=== PATIENT | female | born 1950 | race Caucasian/White ===

== ENCOUNTER 2018-05-25 21:53 | Inpatient (IN) ==
--- NOTE | 2018-05-25 23:02 | P.HPIM ---
History of Present Illness Service: [facility] Primary Care Physician: UNKNOWN Chief Complaint: Right knee pain History of Present Illness: 68-year-old female htn,GERD, and arthritis was a transfer from [facility] for orthopedic evaluation, status post fall. Patient was complaining of right knee pain she states when she was using the commode earlier she stood up and felt her knee give out and she fell. She denies any trauma of hitting her head , LOC or dizziness. X-rays completed at [facility] and reviewed, femur x- ray shows a closed acute spiral distal femoral metadiaphyseal fracture with 1.8 cm lateral displacement. She also complains of a right inner ankle chronic wound that she has had she states she does her own wound care dressings every other day but states over the last month she has seen it becoming worse, she states she has some yellow drainage from time to time, no foul smell or fevers. She denies any recent chest pain or shortness of breath. Inpatient Certification: I certify that the inpatient services were ordered in accordance with Medicare regulations governing the order. This includes certification that hospital inpatient services are reasonable and necessary and in the case of services not specified as inpatient-only under 42 CFR 419.22(n), that they are appropriately provided as inpatient services in accordance to with the 2-midnight benchmark under 43 CFR 412.3(e) Review of Systems All other systems reviewed negative except as stated in [facility] - Medical History Medical History: Medical History (Last Reviewed 05/26/18 @ 02:41 by BERONICA Payton) GERD (gastroesophageal reflux disease) (Acute) HTN (hypertension) (Acute) Arthritis C. difficile diarrhea - Surgical History Surgical History: Surgical History (Last Reviewed 05/26/18 @ 02:42 by BERONICA Payton) History of hip replacement - Family History Family History: Family History (Last Updated 05/26/18 @ 02:42 by BERONICA Payton) Mother AAA (abdominal aortic aneurysm) - Social History I have reviewed the patient's Social History: Yes - Tobacco History Second Hand Smoke Exposure: No Tobacco Use In Past 30 Days: No Smoking Status: Never smoker Medications and Allergies Allergies Allergy/AdvReac Type Severity Reaction Status Date / Time oxaprozin [From Daypro] Allergy Redness of Verified 05/25/18 23:02 Skin Home Medications Medication Instructions Recorded Confirmed Type aspirin 650 mg PO Q4-6H PRN 05/25/18 05/25/18 History metoprolol tartrate 25 mg PO DAILY 05/25/18 05/25/18 History omeprazole 20 mg PO DAILY 05/25/18 05/25/18 History Exam Narrative: GENERAL: This is a well-nourished, well-developed patient, in no apparent distress. SKIN: right inner ankle ulcer, minimal drainage EYES: Pupils equal round and reactive, no scleral edema or drainage CARDIOVASCULAR: Regular rate and rhythm without murmurs, gallops, or rubs. RESPIRATORY: Clear to auscultation. Breath sounds equal bilaterally. No wheezes , rales, or rhonchi. GASTROINTESTINAL: Abdomen soft, non-tender, nondistended. Normal active bowel sounds MUSCULOSKELETAL: Extremities without clubbing, cyanosis, or edema. NEURO: Alert & Oriented x4 to person, place, time, situation. Moves all ext x4 Caprini VTE Risk Assessment Caprini VTE Risk Assessment: No/Low Risk (score <= 1) Caprini Risk Assessment Model: Point Value = 1 Point Value = 2 Point Value = 3 Point Value = 5 Age 41-60 Minor surgery BMI > 25 kg/m2 Swollen legs Varicose veins or History of unexplained or recurrent spontaneous Oral contraceptives or hormone replacement Sepsis (< 1 month) Serious lung disease, including pneumonia (< 1 month) Abnormal pulmonary function Acute myocardial infarction Congestive heart failure (< 1 month) History of inflammatory bowel disease Medical patient at bed rest Age 61-74 Arthroscopic surgery Major open surgery (> 45 min) Laparoscopic surgery (> 45 min) Malignancy Confined to bed (> 72 hours) Immobilizing plaster cast Central venous access Age >= 75 History of VTE Family history of VTE Factor V Leiden Prothrombin [id number] Lupus anticoagulant Anticardiolipin antibodies Elevated serum homocysteine Heparin-induced thrombocytopenia Other congenital or acquired thrombophilia Stroke (< 1 month) Elective arthroplasty Hip, pelvis, or leg fracture Acute spinal cord injury (< 1 month) Prophylaxis Regimen: Total Risk Factor Score Risk Level Prophylaxis Regimen 0-1 Low Early ambulation 2 Moderate Order ONE of the following: *Sequential Compression Device (SCD) *Heparin 5000 units SQ BID 3-4 Higher Order ONE of the following medications: *Heparin 5000 units SQ TID *Enoxaparin/Lovenox 40 mg SQ daily (WT < 150 kg, CrCl > 30 mL/min) *Enoxaparin/Lovenox 30 mg SQ daily (WT < 150 kg, CrCl > 10-29 mL/min) *Enoxaparin/Lovenox 30 mg SQ BID (WT < 150 kg, CrCl > 30 mL/min) AND/OR *Sequential Compression Device (SCD) 5 or more Highest Order ONE of the following medications: *Heparin 5000 units SQ TID (Preferred with Epidurals) *Enoxaparin/Lovenox 40 mg SQ daily (WT < 150 kg, CrCl > 30 mL/min) *Enoxaparin/Lovenox 30 mg SQ daily (WT < 150 kg, CrCl > 10-29 mL/min) *Enoxaparin/Lovenox 30 mg SQ BID (WT < 150 kg, CrCl > 30 mL/min) AND *Sequential Compression Device (SCD) Assessment and Plan - Plan 68-year-old female htn,GERD, and arthritis was a transfer from [facility] for orthopedic evaluation, status post fall. Right femur fracture Femur x-ray shows a closed acute spiral distal femoral metadiaphyseal fracture with 1.8 cm lateral displacement. -N.p.o., IVF -Consult orthopedics for evaluation -Pain management with IV morphine -PT consult post surgery Chronic non healing wound, right inner ankle -Consult wound care for recommendations Hypertension, chronic -Resume home metoprolol, monitor vitals GERD, chronic -Resume home medications, with no longer n.p.o. DVT prophylaxis: SCDs Discussed Condition With: patient and RN
[2018-05-25] MEDS ORDERED: Acetaminophen 325 MG Tablet PO PRN (23:07)
[2018-05-25] MEDS ORDERED: Sodium Chloride 0.9% 2 ML Flush PRN IV.FLUSH (23:30)
[2018-05-26] MEDS: Sod Chloride 0.9% Inj 1,000 ML IV.CONT SCH ×2 (00:53→13:05)
[2018-05-26] MEDS: Morphine Sulfate Inj 2 MG/ML Vial IV.PUSH PRN ×2 (04:38→19:34)
[2018-05-26 08:05] LABS: Baso % (Auto) 0.3 % (0.0-2.0); Eos % (Auto) 0.3 % (0.0-4.0); Hemoglobin 8.6 gm/dL (11.6-15.3); Lymph # (Auto) 1.1 th/mm3 (1.0-4.8); Lymph % (Auto) 7.6 % (9.0-44.0); Mean Corpuscular HGB Conc 31.6 % (32.0-36.0); Mean Corpuscular Hemoglobin 22.8 pg (27.0-34.0); Mean Corpuscular Volume 72.1 fL (80.0-100.0); Mean Platelet Volume 6.9 fL (7.0-11.0); Mono % (Auto) 7.2 % (0.0-8.0); Neut # (Auto) 12.1 th/mm3 (1.8-7.7); Neut % (Auto) 84.6 % (16.0-70.0); Platelet Count 397 th/mm3 (150-450); Red Blood Count 3.75 mil/mm3 (4.00-5.30); Red Cell Distribution Width 16.7 % (11.6-17.2); White Blood Count 14.3 th/mm3 (4.0-11.0)
[2018-05-26] MEDS: Metoprolol Tartrate 25 MG Tablet PO SCH (08:11)
[2018-05-26 08:25] LABS: Calcium 8.5 mg/dL (8.5-10.1); Carbon Dioxide 26.8 meq/L (21.0-32.0); Potassium 4.6 meq/L (3.5-5.1)
[2018-05-26] MEDS ORDERED: TRANEXAMIC ACID IV.SIG SCH (09:00)
[2018-05-26] MEDS ORDERED: SODIUM CHLOR 0.9% IV.SIG SCH (09:00)
[2018-05-26] MEDS ORDERED: Neostigmine Inj 5 MG/5 ML Syringe IV.PUSH ONE (09:19)
[2018-05-26] MEDS ORDERED: Glycopyrrolate Inj 1 MG/5 ML Syringe IV.PUSH ONE (09:19)
[2018-05-26] MEDS ORDERED: Lidocaine PF 1% Inj 5 ML Syringe OTHER ONE (09:19)
--- NOTE | 2018-05-26 10:55 | P.PNWCN ---
Wound Care Nurse Consult Description: Consult for Wound Management of right inner ankle per BERONICA Bowling Additional information: Patient not seen in [facility] for right inner ankle wound. Patient off unit and taken to OR for surgery. Will attempt to see patient post surgery.
[2018-05-26] MEDS ORDERED: Tobramycin Sulfate 1,200 MG Vial (for ortho/sterile core) OTHER ONE (10:59)
[2018-05-26] MEDS ORDERED: Morphine Inj 4 MG/ML Vial IV.PUSH PRN (11:04)
[2018-05-26] MEDS ORDERED: Post-op Orders (for Pharmacy) OTHER STA (11:04)
--- NOTE | 2018-05-26 11:11 | P.OP ---
- Preoperative Diagnosis (1) Closed supracondylar fracture of right femur Date of procedure: 05/26/18 Procedure: Open reduction internal fixation right distal femur supracondylar fracture Anesthesia: GETA Surgeon: Derick Day MD Supervisor Inspection: LATANYA Garner PA-C The surgical procedure was assisted by my physician power plant assistant. My P.A. presence was necessary throughout this case for the manipulation and positioning of the surgical extremity. My P.A. was assisting me throughout the duration of this procedure. The skill set of a physician power plant assistant was medically necessary to complete this procedure. During the surgical case the surgical supply assistant was working at the back table and the physician power plant assistant was directly assisting me. Operation and Findings: Implants used: Synthes Plan of activity: Nonweightbearing, passive range of motion of knee Details of procedure: Informed consent was obtained, operative site was marked. Patient was brought to the OR, placed on OR table, and given IV sedation with GETA. IV antibiotics were administered. The operative leg was prepped with alcohol, followed with Hibiclens, draped in usual sterile fashion. A timeout procedure was performed. During x-ray examination of the fracture there was suspicion for a right tibial plateau fracture. I discussed this finding with patient's son. Informed consent was obtained from patient's son for possible open reduction internal fixation of right tibial plateau with allograft bone grafting. The procedure began with a 4-inch incision over the lateral aspect of the distal femur. Subcutaneous tissue was dissected with Bovie. Iliotibial band was split in line with fibers. At this point the fracture was visualized. Traction was applied. Fracture was manipulated. The fracture reduced into excellent alignment. Steinmann pins were used to hold provisional fixation. At this point attention was turned to plate placement. The plate was placed underneath the vastus lateralis. Steinmann pins were used to hold the plate to bone. Multiplanar fluoroscopy confirmed appropriate placement of plate. Multiple 4.5 cortical screws were now placed in percutaneous fashion through the plate. The plate was compressed to bone. Multiple locking screws were now placed in the distal segment of the distal femur. Additional screws were placed into the femoral shaft. All screws were predrilled and premeasured for appropriate length. Final fluoroscopy revealed excellent alignment of fracture with well-placed hardware. Wound was thoroughly irrigated. Next, attention was turned to the right tibial plateau. The distal femur incision was extended distally approximately 2 inches. Anterior tibialis origin was released. A sub-meniscal arthrotomy was created. Patient was noted to have severe arthritis. The lateral joint line was visualized through arthrotomy. Patient had significant depression of the lateral tibial plateau. This appears to be a chronic fracture. The fracture appeared to be completely healed. No fracture lines were visible and the fracture was not mobile. Attention was now turned towards wound closure. Fascia was closed with #1 Vicryl. Subcutaneous tissue was closed with 3-0 Vicryl. Skin was closed with guerda. Sterile dressings were applied. The patient was placed into a knee immobilizer and transferred to recovery in stable condition. Needle and sponge counts were correct.
--- NOTE | 2018-05-26 11:17 | P.CONOP ---
[facility] Orthopedics Consult Note - [facility] Consult date: 05/26/18 Chief complaint: Famur Fracture s/p Fall Narrative: Camilo is a 68-year-old female. She had a fall. She describes a mechanical fall. She denies dizziness, syncope, or loss of consciousness. She only ambulates short distances and uses a wheelchair for longer distances. She was getting up from the commode when she fell. She states that she has had chronic knee arthritis and pain. She has previously been evaluated for having a total knee replacement however she has had chronic wounds on her legs which have prevented knee replacement surgery. She initially presented to [facility] and was subsequently transferred to [facility] for definitive treatment. She complains of severe right knee pain. Pain is worse with movement and is improved with rest. She has had open wounds on her right ankle for over 4 years. Review of Systems Patient denies fevers, chills, weight loss, headache, visual changes, hearing loss, chest pain, palpitations, shortness of breath, nausea, vomiting, no urinary changes, diarrhea, bowel changes, neck pain, back pain, skin rashes, weakness of extremities, easy bleeding, enlarged lymph nodes, numbness of extremities, anxiety, or depression. She complains of right knee pain. Patient's social history, past medical history, and family history were reviewed on chart and with patient. [facility] - History History Provided By: Patient - Medical History Medical History: Medical History (Last Reviewed 05/26/18 @ 11:15 by Derick Day MD) GERD (gastroesophageal reflux disease) (Acute) HTN (hypertension) (Acute) Arthritis C. difficile diarrhea - Surgical History Surgical History: Surgical History (Last Reviewed 05/26/18 @ 11:15 by Derick Day MD) History of hip replacement - Family History Family History: Family History (Last Reviewed 05/26/18 @ 11:15 by Derick Day MD) Mother AAA (abdominal aortic aneurysm) - Social History I have reviewed the patient's Social History: Yes - Tobacco History Second Hand Smoke Exposure: No Tobacco Use In Past 30 Days: No Smoking Status: Never smoker - Substance Use History Substance History: No History of Abuse - Travel History Recent Travel in the [place] Within the Last 8 Weeks: No Recent Travel Out of the Country Within the Last 8 Weeks: No Medications and Allergies Active Medications: Active Medications Acetaminophen (Tylenol) 650 mg PO Q4H PRN PRN Reason: Temp > 100.4 Hydrocodone Bitart/Acetaminophen ([place] 7.5/325) 1 tab PO Q3H PRN PRN Reason: Pain Scale 3-10 Calcium/Vitamin D (Oscal With D 250/125 Mg) 1 tab PO TID [facility] Ergocalciferol (Vitamin D2) 50,000 unit PO ONCE ONE Stop: 05/26/18 11:05 Sodium Chloride (Ns Inj) 1,000 mls @ 75 mls/hr IV.CONT .[id number] [facility] Last Admin: 05/26/18 00:53 Dose: 75 mls/hr Tranexamic Acid 1,680 mg/ (Sodium Chloride) 116.8 mls @ 200 mls/hr IV.SIG ONCE [facility] Stop: 05/26/18 15:00 Last Admin: 05/26/18 09:55 Dose: 200 mls/hr Cefazolin Sodium 2,000 mg/ (Sodium Chloride) 100 mls @ 200 mls/hr IV.SIG Q8H [facility] Stop: 05/28/18 04:29 Lactated Ringer's (Lr 1000 Ml Inj) 1,000 mls @ 80 mls/hr IV.CONT .[id number] [facility] Vancomycin/Sodium Chloride (Vancomycin Inj) 1 gm in 200 mls @ 200 mls/hr IV.SIG Q12H [facility] Stop: 05/27/18 00:59 Metoprolol Tartrate (Lopressor) 25 mg PO DAILY [facility] Last Admin: 05/26/18 08:11 Dose: 25 mg Miscellaneous Information (Misc Post-Op Orders (For Pharmacy)) 0 each OTHER STAT STA Stop: 05/26/18 11:05 Morphine Sulfate (Morphine Inj) 2 mg IV.PUSH Q3H PRN PRN Reason: pain 1 to 10 Last Admin: 05/26/18 04:38 Dose: 2 mg Morphine Sulfate (Morphine Inj) 3 mg IV.PUSH Q3H PRN PRN Reason: BREAKTHROUGH PAIN Ondansetron HCl (Zofran Inj) 4 mg IV.PUSH Q6H PRN PRN Reason: NAUSEA OR VOMITING Ondansetron HCl (Zofran Odt) 4 mg PO Q6H PRN PRN Reason: NAUSEA OR VOMITING Pantoprazole Sodium (Protonix) 20 mg PO DAILY [facility] Rivaroxaban (Xarelto) 10 mg PO Q24H [facility] Sodium Chloride (Ns Flush) 2 ml IV.FLUSH BID [facility] Sodium Chloride (Ns Flush) 2 ml IV.FLUSH PRN PRN PRN Reason: FLUSH AFTER USING IV ACCESS Sodium Chloride (Ns Flush) 2 ml IV.FLUSH BID [facility] Sodium Chloride (Ns Flush) 2 ml IV.FLUSH PRN PRN PRN Reason: FLUSH AFTER USING IV ACCESS Vitamin D (Vitamin D3) 5,000 unit PO DAILY [facility] Allergies Allergy/AdvReac Type Severity Reaction Status Date / Time oxaprozin [From Daypro] Allergy Redness of Verified 05/25/18 23:02 Skin Home Medications Medication Instructions Recorded Confirmed Type aspirin 650 mg PO Q4-6H PRN 05/25/18 05/25/18 History metoprolol tartrate 25 mg PO DAILY 05/25/18 05/25/18 History omeprazole 20 mg PO DAILY 05/25/18 05/25/18 History Exam Vital signs: Vital Signs 05/25/18 23:35 05/26/18 00:31 05/26/18 03:45 Temperature 98.8 F 97.8 F Pulse Rate 86 78 Respiratory Rate 18 18 Blood Pressure 217/100 H 170/81 H Pulse Oximetry 98 98 98 05/26/18 07:41 05/26/18 08:04 Temperature 99.0 F Pulse Rate 76 Respiratory Rate 16 Blood Pressure 183/92 H Pulse Oximetry 99 100 Intake & Output 05/25/18 05/26/18 05/26/18 18:59 06:59 18:59 Intake Total 450 / 450 Balance 450 / 450 Weight 111.9 kg Intake: Other 450 / 450 Other: Other Intake Source Saline Solution # Voids 3 Date of Last Bowel Movement 05/25/18 Weight On Admission 111.9 kg Narrative: Camilo is a 68-year-old female. She appears moderately overweight. General: Awake and alert. No acute distress. Appears well-developed well- nourished Head: Normocephalic, atraumatic pupils are equal Neck: Soft, nontender, trachea midline Abdomen: Soft, nondistended Examination of right arm reveals no pain or deformity with shoulder, elbow, or wrist motion. Skin is intact. Radial pulse is palpable. Normal capillary refill in fingers. Sensation is intact in radial, ulnar, and median nerve distributions. Brim Pouncer strength is +5. No lymphadenopathy noted. Examination of left arm reveals no pain or deformity with shoulder, elbow, or wrist motion. Skin is intact. Radial pulse is palpable. Normal capillary refill in fingers. Sensation is intact in radial, ulnar, and median nerve distributions. Brim Pouncer strength is +5. No lymphadenopathy noted. Examination of left lower extremity reveals no pain or deformity with hip, knee , or ankle motion. Skin is intact. Sensation is intact in left foot. Dorsalis pedis pulse is palpable. Normal capillary refill and feet. Thigh and calf compartments are soft. No lymphadenopathy noted. +5 strength of ankle dorsiflexion and plantarflexion. Examination of right lower extremity reveals pain with any knee motion. She has no pain with ankle motion. She has mild swelling around her knee. Skin is intact except for a large superficial ulceration over the medial ankle and calf. Sensation is intact in right foot. Dorsalis pedis pulse is palpable. Normal capillary refill and feet. Thigh and calf compartments are soft. No lymphadenopathy noted. +5 strength of ankle dorsiflexion and plantarflexion. Results - Labs Result Diagrams: 05/26/18 07:20 05/26/18 07:20 Labs: Laboratory Results - last 24 hr 05/26/18 05/26/18 07:20 07:20 WBC 14.3 H RBC 3.75 L Hgb 8.6 L Hct 27.0 L MCV 72.1 L MCH 22.8 L MCHC 31.6 L RDW 16.7 Plt Count 397 MPV 6.9 L Neut % (Auto) 84.6 H Lymph % (Auto) 7.6 L [place] % (Auto) 7.2 Eos % (Auto) 0.3 Baso % (Auto) 0.3 Neut # (Auto) 12.1 H Lymph # (Auto) 1.1 [place] # (Auto) 1.0 H Eos # (Auto) 0.0 Baso # (Auto) 0.0 WBC Differential . Differential Comment Auto diff final Sodium 135 L Potassium 4.6 Chloride 102 Carbon Dioxide 26.8 Anion Gap 6 BUN 18 Creatinine 0.74 Estimated GFR 78 L Random Glucose 102 Calcium 8.5 - Diagnostic results Knee x-ray: report reviewed, image reviewed Assessment and Plan - Assessment and Plan Deya had a fall resulting in displaced right distal femur fracture. She has had chronic ulceration of her right ankle. She also has moderate to severe osteoarthritis of her right knee. [facility] from from [facility] and were reviewed. At this point I would recommend open reduction internal fixation of right distal femur. The risk and benefits of surgery were discussed in depth with patient. All questions were answered. The risk and benefits of surgery were discussed in depth with patient. The risk of surgery include bleeding, infection, injuries to arteries, nerves, or blood vessels, infection, wound complications, nonunion, malunion, painful hardware, and need for further surgery. I also discussed medical complications including blood clots, pneumonia, stroke, heart attack, and . Informed consent was obtained and all questions were answered. N.p.o.--plan on surgery this morning Calcium and vitamin D supplementation Physical therapy consult--nonweightbearing right leg Follow-up with Dr. Day in 2 weeks SCDs, John Kaur A mid-level provider in my office (nurse practitioner or physician server assistant) may see this patient on follow-up visits and continue to implement the objectives of this plan including: Starting or adjusting medications, injections , cast application, orthotics, brace application, physical therapy, radiological studies (including x-ray, MRI, CT, ultrasound, bone scan), vascular studies, neurologic studies, specialist consultation, and proceeding with surgical management, as appropriate.
--- NOTE | 2018-05-26 11:34 | XR ---
EXAM DATE: 05/26/2018 12:00 AM EDT AGE/SEX: 68 years / Female INDICATIONS: Right femur open reduction internal fixation. CLINICAL DATA: This is the patient's initial encounter. Patient reports that signs and symptoms have been present for 1 day and indicates a pain score of Nonresponsive. MEDICAL/SURGICAL HISTORY: Non-responsive. Non-responsive. COMPARISON: No prior exams available for comparison. FINDINGS: Status post internal fixation for fractures involving the distal femur. There is good position and al ignment of the fracture fragments. The hardware is grossly intact. There is good alignment at the kne e joint. CONCLUSION: Good position and alignment on this postoperative study. Electronically signed by: Alverto Acevedo MD 05/26/2018 11:33 AM EDT
[2018-05-26] MEDS ORDERED: *Meperidine Inj 25 MG/ML Vial PERIprocedural Use ONLY ONE (11:48)
[2018-05-26] MEDS ORDERED: *morphine SULFATE 4 MG/ML PERIprocedure ONLY ONE (12:36)
[2018-05-26] MEDS ORDERED: *Promethazine Inj 25 MG/ML Vial PERIprocedural use ONLY ONE (12:52)
[2018-05-26] MEDS ORDERED: fentaNYL Citrate Inj 100 MCG/2 ML Ampul ONE (13:16)
[2018-05-26] MEDS ORDERED: *morphine SULFATE 10 MG/ML PERIprocedure ONLY ONE (13:27)
--- NOTE | 2018-05-26 14:05 | P.PN ---
Subjective Interval history: Patient is seen in PACU, after the surgery. Surgery went well she complains of pain at the surgical site. Blood pressure is noted elevated due to pain most likely. No tachycardia. No chest pain denies shortness of breath. Physical Exam Vital signs: Vital Signs 05/25/18 23:35 05/26/18 00:31 05/26/18 03:45 Temperature 98.8 F 97.8 F Pulse Rate 86 78 Respiratory Rate 18 18 Blood Pressure 217/100 H 170/81 H Pulse Oximetry 98 98 98 05/26/18 07:41 05/26/18 08:04 05/26/18 11:45 Temperature 99.0 F 97.5 F L Pulse Rate 76 64 Respiratory Rate 16 18 Blood Pressure 183/92 H 162/78 H Pulse Oximetry 99 100 95 05/26/18 12:00 05/26/18 12:15 05/26/18 12:30 Temperature Pulse Rate 65 64 63 Respiratory Rate 20 17 19 Blood Pressure 183/82 H Pulse Oximetry 98 100 100 05/26/18 12:45 Temperature Pulse Rate 62 Respiratory Rate 13 Blood Pressure 165/77 H Pulse Oximetry 100 Intake & Output 05/25/18 05/26/18 05/26/18 18:59 06:59 18:59 Intake Total 450 / 450 1850 / 1850 Output Total 200 / 200 Balance 450 / 450 1650 / 1650 Weight 111.9 kg Intake: Anesthesia Amount 1850 / 1850 Other 450 / 450 Output: Estimated Blood Loss 200 / 200 Other: Other Intake Source Saline Solution # Voids 3 Date of Last Bowel Movement 05/25/18 Weight On Admission 111.9 kg Narrative: GENERAL: This is a well-nourished, well-developed patient, in no apparent distress. SKIN: right inner ankle ulcer, minimal drainage EYES: Pupils equal round and reactive, no scleral edema or drainage CARDIOVASCULAR: Regular rate and rhythm without murmurs, gallops, or rubs. RESPIRATORY: Clear to auscultation. Breath sounds equal bilaterally. No wheezes , rales, or rhonchi. GASTROINTESTINAL: Abdomen soft, non-tender, nondistended. Normal active bowel sounds MUSCULOSKELETAL: Extremities without clubbing, cyanosis, or edema.S/p surgery NEURO: Alert & Oriented x4 to person, place, time, situation. Moves all ext x4 Results - Labs CBC & Chem 7: 05/26/18 07:20 05/26/18 07:20 Laboratory Results - last 24 hr 05/26/18 05/26/18 07:20 07:20 WBC 14.3 H RBC 3.75 L Hgb 8.6 L Hct 27.0 L MCV 72.1 L MCH 22.8 L MCHC 31.6 L RDW 16.7 Plt Count 397 MPV 6.9 L Neut % (Auto) 84.6 H Lymph % (Auto) 7.6 L [place] % (Auto) 7.2 Eos % (Auto) 0.3 Baso % (Auto) 0.3 Neut # (Auto) 12.1 H Lymph # (Auto) 1.1 [place] # (Auto) 1.0 H Eos # (Auto) 0.0 Baso # (Auto) 0.0 WBC Differential . Differential Comment Auto diff final Sodium 135 L Potassium 4.6 Chloride 102 Carbon Dioxide 26.8 Anion Gap 6 BUN 18 Creatinine 0.74 Estimated GFR 78 L Random Glucose 102 Calcium 8.5 - Imaging Impressions Femur X-Ray 05/26/18 00:00 CONCLUSION: Good position and alignment on this postoperative study. Assessment and Plan - Plan 68-year-old female htn,GERD, and arthritis was a transfer from [facility] for orthopedic evaluation, status post fall. Right femur fracture Femur x-ray shows a closed acute spiral distal femoral metadiaphyseal fracture with 1.8 cm lateral displacement. -N.p.o., IVF -Consult orthopedics s/p surgery by Dr Leon -Pain management with IV morphine -PT consult post surgery Chronic non healing wound, right inner ankle -Consult wound care for recommendations Hypertension, chronic -Resume home metoprolol, monitor vitals GERD, chronic -Resume home medications, with no longer n.p.o. DVT prophylaxis: SCDs Discussed Condition With: patient and nurse
[2018-05-26] MEDS: Sodium Chloride 0.9% 2 ML Flush BID IV.FLUSH SCH (14:30)
[2018-05-26] MEDS: Pantoprazole Sodium 20 MG DR Tablet PO SCH (16:18)
[2018-05-26] MEDS: Calcium/Vitamin D 250/125 MG Tablet PO SCH ×2 (16:18→18:11)
[2018-05-26] MEDS: ceFAZolin 2 GM Premix Inj 2 GM/50 ML PIGGYBACK IV.SIG SCH (18:14)
[2018-05-27] MEDS: Vancomycin Inj 1,000 MG in Sodium Chlor 0.9% Inj 250 ML IV.SIG SCH ×2 (00:25→12:39)
[2018-05-27] MEDS: Sodium Chloride 0.9% 2 ML Flush BID IV.FLUSH SCH ×3 (00:26→20:22)
[2018-05-27] MEDS: ceFAZolin 2 GM Premix Inj 2 GM/50 ML PIGGYBACK IV.SIG SCH ×3 (03:18→18:42)
[2018-05-27] MEDS: Sod Chloride 0.9% Inj 1,000 ML IV.CONT SCH (03:19)
[2018-05-27] MEDS: Morphine Sulfate Inj 2 MG/ML Vial IV.PUSH PRN ×2 (05:07→10:02)
--- NOTE | 2018-05-27 06:41 | P.PNOP ---
Subjective Interval history: Resting comfortably with no new complaints Physical Exam Vital signs: Vital Signs 05/26/18 07:41 05/26/18 08:04 05/26/18 11:45 Temperature 99.0 F 97.5 F L Pulse Rate 76 64 Respiratory Rate 16 18 Blood Pressure 183/92 H 162/78 H Pulse Oximetry 99 100 95 05/26/18 12:00 05/26/18 12:15 05/26/18 12:30 Temperature Pulse Rate 65 64 63 Respiratory Rate 20 17 19 Blood Pressure 183/82 H Pulse Oximetry 98 100 100 05/26/18 12:45 05/26/18 13:45 05/26/18 14:45 Temperature 97.6 F Pulse Rate 62 64 65 Respiratory Rate 13 13 12 Blood Pressure 165/77 H 181/77 H 167/72 H Pulse Oximetry 100 100 100 05/26/18 16:00 05/26/18 19:46 05/26/18 20:00 Temperature 97.7 F 98 F Pulse Rate 73 84 Respiratory Rate 18 18 Blood Pressure 180/84 H 155/81 H Pulse Oximetry 98 98 99 05/27/18 00:00 Temperature 98.3 F Pulse Rate 83 Respiratory Rate 18 Blood Pressure 149/72 H Pulse Oximetry 100 Intake & Output 05/26/18 05/26/18 05/27/18 06:59 18:59 06:59 Intake Total 450 / 450 2850 / 2850 2310 / 2310 Output Total 200 / 200 Balance 450 / 450 2650 / 2650 2310 / 2310 Weight 111.9 kg 111.9 kg Intake: IV 1000 / 1000 1450 / 1450 NS Inj 1,000 ML @ 75 mls/hr IV. 1000 / 1000 1100 / 1100 CONT .[id number] REBECCA Rx#:[id number] Vancomycin Inj 1,000 MG In NS 250 / 250 Inj 250 ML @ 250 mls/hr IV.SIG Q12H REBECCA Rx#:[id number] Ancef 2 GM Premix Inj 2 gm In 100 / 100 50 ml @ 100 mls/hr IV.SIG Q8H REBECCA Rx#:[id number] Oral 860 / 860 Anesthesia Amount 1850 / 1850 Other 450 / 450 Output: Estimated Blood Loss 200 / 200 Other: Other Intake Source Saline Solution # Voids 3 Date of Last Bowel Movement 05/25/18 05/25/18 05/25/18 Weight On Admission 111.9 kg Narrative: Right lower extremity: Clean dry dressings intact. Knee immobilizer in intact sensation in toes with good capillary refills. Weak dorsiflexion and plantarflexion of foot Results - Labs CBC & Chem 7: 05/26/18 07:20 05/26/18 07:20 Laboratory Results - last 24 hr 05/26/18 05/26/18 07:20 07:20 WBC 14.3 H RBC 3.75 L Hgb 8.6 L Hct 27.0 L MCV 72.1 L MCH 22.8 L MCHC 31.6 L RDW 16.7 Plt Count 397 MPV 6.9 L Neut % (Auto) 84.6 H Lymph % (Auto) 7.6 L [place] % (Auto) 7.2 Eos % (Auto) 0.3 Baso % (Auto) 0.3 Neut # (Auto) 12.1 H Lymph # (Auto) 1.1 [place] # (Auto) 1.0 H Eos # (Auto) 0.0 Baso # (Auto) 0.0 WBC Differential . Differential Comment Auto diff final Sodium 135 L Potassium 4.6 Chloride 102 Carbon Dioxide 26.8 Anion Gap 6 BUN 18 Creatinine 0.74 Estimated GFR 78 L Random Glucose 102 Calcium 8.5 - Imaging Impressions Femur X-Ray 05/26/18 00:00 CONCLUSION: Good position and alignment on this postoperative study. Assessment and Plan - Assessment and Plan Right distal femur fracture ORIF POD 1 Nonweightbearing right lower extremity Knee immobilizer at all times except for passive range of motion of knee with physical therapy No active leg lifts or quad sets Begin daily dressing changes starting on Thursday [facility] Follow-up appointment with Dr. Leon or TAVO 2 weeks
[2018-05-27 07:10] LABS: Baso # (Auto) 0.1 th/mm3 (0.0-0.2); Baso % (Auto) 0.5 % (0.0-2.0); Eos # (Auto) 0.3 th/mm3 (0.0-0.4); Eos % (Auto) 2.3 % (0.0-4.0); Hematocrit 22.4 % (35.0-46.0); Hemoglobin 7.2 gm/dL (11.6-15.3); Lymph # (Auto) 0.7 th/mm3 (1.0-4.8); Lymph % (Auto) 5.4 % (9.0-44.0); Mean Corpuscular HGB Conc 32.1 % (32.0-36.0); Mean Corpuscular Hemoglobin 23.3 pg (27.0-34.0); Mean Corpuscular Volume 72.5 fL (80.0-100.0); Mean Platelet Volume 7.3 fL (7.0-11.0); Mono # (Auto) 1.3 th/mm3 (0.0-0.9); Mono % (Auto) 9.9 % (0.0-8.0); Neut # (Auto) 10.5 th/mm3 (1.8-7.7); Neut % (Auto) 81.9 % (16.0-70.0); Platelet Count 379 th/mm3 (150-450); Red Blood Count 3.08 mil/mm3 (4.00-5.30); Red Cell Distribution Width 16.4 % (11.6-17.2); White Blood Count 12.9 th/mm3 (4.0-11.0)
[2018-05-27 07:42] LABS: Calcium 7.4 mg/dL (8.5-10.1); Carbon Dioxide 25.8 meq/L (21.0-32.0)
[2018-05-27 08:03] LABS: Total Protein 6.9 g/dL (6.4-8.2)
--- NOTE | 2018-05-27 09:51 | XR ---
EXAM DATE: 05/27/2018 12:00 AM EDT AGE/SEX: 68 years / Female INDICATIONS: Short of breath. CLINICAL DATA: This is the patient's subsequent encounter. Patient reports that signs and symptoms h ave been present for 3 days and indicates a pain score of 0/10. MEDICAL/SURGICAL HISTORY: None. CABG. COMPARISON: No prior exams available for comparison. FINDINGS: Coarse perihilar interstitial prominence with indistinct central pulmonary vascularity. Cardiac silho uette is mildly enlarged. Postsurgical features of prior median sternotomy. Degenerative changes abou t the shoulders bilaterally. Osseous structures are otherwise grossly intact. CONCLUSION: 1. Cardiomegaly with mild pulmonary vascular congestion. Electronically signed by: Francisco Javier Lees MD 05/27/2018 9:50 AM EDT
[2018-05-27] MEDS: Pantoprazole Sodium 20 MG DR Tablet PO SCH (10:03)
[2018-05-27] MEDS: Calcium/Vitamin D 250/125 MG Tablet PO SCH ×3 (10:03→18:42)
[2018-05-27] MEDS: Metoprolol Tartrate 25 MG Tablet PO SCH (10:04)
--- NOTE | 2018-05-27 10:15 | P.PN ---
Subjective Interval history: Follow up for right distal femur fracture status post ORIF. Patient is currently sitting in her chair. She is on supplemental oxygen on 2 L via nasal cannula. She denies any dyspnea, chest pain, fever or chills. Physical Exam Vital signs: Vital Signs 05/26/18 11:45 05/26/18 12:00 05/26/18 12:15 Temperature 97.5 F L Pulse Rate 64 65 64 Respiratory Rate 18 20 17 Blood Pressure 162/78 H Pulse Oximetry 95 98 100 05/26/18 12:30 05/26/18 12:45 05/26/18 13:45 Temperature Pulse Rate 63 62 64 Respiratory Rate 19 13 13 Blood Pressure 183/82 H 165/77 H 181/77 H Pulse Oximetry 100 100 100 05/26/18 14:45 05/26/18 16:00 05/26/18 19:46 Temperature 97.6 F 97.7 F Pulse Rate 65 73 Respiratory Rate 12 18 Blood Pressure 167/72 H 180/84 H Pulse Oximetry 100 98 98 05/26/18 20:00 05/27/18 00:00 05/27/18 04:00 Temperature 98 F 98.3 F 98.8 F Pulse Rate 84 83 85 Respiratory Rate 18 18 18 Blood Pressure 155/81 H 149/72 H 116/66 Pulse Oximetry 99 100 97 05/27/18 08:00 Temperature 98.5 F Pulse Rate 98 H Respiratory Rate 18 Blood Pressure 135/66 Pulse Oximetry 96 Intake & Output 05/26/18 05/27/18 05/27/18 18:59 06:59 18:59 Intake Total 2850 / 2850 2410 / 2410 Output Total 200 / 200 Balance 2650 / 2650 2410 / 2410 Weight 111.9 kg 111.8 kg Intake: IV 1000 / 1000 1450 / 1450 NS Inj 1,000 ML @ 75 mls/hr IV. 1000 / 1000 1100 / 1100 CONT .[id number] REBECCA Rx#:[id number] Vancomycin Inj 1,000 MG In NS 250 / 250 Inj 250 ML @ 250 mls/hr IV.SIG Q12H REBECCA Rx#:[id number] Ancef 2 GM Premix Inj 2 gm In 100 / 100 50 ml @ 100 mls/hr IV.SIG Q8H REBECCA Rx#:[id number] Oral 960 / 960 Anesthesia Amount 1850 / 1850 Output: Estimated Blood Loss 200 / 200 Other: # Voids 1 Date of Last Bowel Movement 05/25/18 05/25/18 Narrative: GENERAL: Alert, oriented x3, NAD. SKIN: Warm and dry. HEAD: Normocephalic. EYES: No scleral icterus. No injection or drainage. NECK: Supple, trachea midline. No JVD or lymphadenopathy. CARDIOVASCULAR: Regular rate and rhythm without murmurs, gallops, or rubs. RESPIRATORY: Moderate air entry. Bibasilar crackles cam on the left side. GASTROINTESTINAL: Abdomen soft, non-tender, nondistended. MUSCULOSKELETAL: No cyanosis, or edema. Status post right distal femur ORIF. BACK: Nontender without obvious deformity. No CVA tenderness. Results - Labs CBC & Chem 7: 05/27/18 06:08 05/27/18 06:08 Laboratory Results - last 24 hr 05/27/18 05/27/18 06:08 06:08 WBC 12.9 H RBC 3.08 L Hgb 7.2 L Hct 22.4 L MCV 72.5 L MCH 23.3 L MCHC 32.1 RDW 16.4 Plt Count 379 MPV 7.3 Neut % (Auto) 81.9 H Lymph % (Auto) 5.4 L [place] % (Auto) 9.9 H Eos % (Auto) 2.3 Baso % (Auto) 0.5 Neut # (Auto) 10.5 H Lymph # (Auto) 0.7 L [place] # (Auto) 1.3 H Eos # (Auto) 0.3 Baso # (Auto) 0.1 WBC Differential . Differential Comment Auto diff final Sodium 135 L Potassium 4.0 Chloride 101 Carbon Dioxide 25.8 Anion Gap 8 BUN 19 H Creatinine 0.88 Estimated GFR 64 L Random Glucose 85 Calcium 7.4 L* D Prot Corrected Calcium 7.5 L Total Protein 6.9 - Imaging Impressions Femur X-Ray 05/26/18 00:00 CONCLUSION: Good position and alignment on this postoperative study. Chest X-Ray 05/27/18 00:00 CONCLUSION: 1. Cardiomegaly with mild pulmonary vascular congestion. - Procedures 05/26/2018 Open reduction internal fixation right distal femur supracondylar fracture Assessment and Plan - Plan Ms. Alejo is a 68-year-old female with a history of htn,GERD, and arthritis who was a transfer from [place] for orthopedic evaluation, status post fall. Patient was found to have femur fracture. Orthopedic surgery was consulted. Patient underwent ORIF right distal femur on 05/26/2018. Right distal femur fracture -Status post ORIF. Continue acetaminophen, morphine, [place] for pain management. -Continue Xarelto 10 mg p.o. every 24 hours. Mild pulmonary edema -Physical exam reveals bibasilar crackles especially on the left side. -Chest x-ray shows cardiomegaly as well as mild pulmonary congestion. -We will obtain echocardiogram. -DC IV fluid and give Lasix 20 mg IV once. -Patient may need low-dose diuretics upon discharge. Full code. Xarelto.
[2018-05-27] MEDS: Rivaroxaban 10 MG Tablet PO SCH (12:36)
--- NOTE | 2018-05-27 13:12 | ECHRPT ---
Indication: Heart failure, unspecified CONCLUSIONS The left ventricular systolic function is low normal with an estimated ejection fraction in the rang e of 50- 55%. Wall thickness is measured at the upper limits of normal. Normal left ventricular size. The aortic valve is not well visualized. Bioprosthetic aortic valve appears well seated. No aortic valve stenosis or regurgitation. There is severe tricuspid regurgitation. The estimated pulmonary arterial pressure is 79.2 mmHg. BP: / HR: Rhythm: Sinus MEASUREMENTS (Male / Female) Normal Values Technical Quality:Fair 2D ECHO LV Diastolic Diameter PLAX 4.5 cm 4.2 - 5.9 / 3.9 - 5.3 cm LV Systolic Diameter PLAX 3.5 cm IVS Diastolic Thickness 1.0 cm 0.6 - 1.0 / 0.6 - 0.9 cm LVPW Diastolic Thickness 1.1 cm 0.6 - 1.0 / 0.6 - 0.9 cm LV Relative Wall Thickness 0.5 LVOT Diameter 2.0 cm M-MODE Aortic Root Diameter MM 3.2 cm LA Systolic Diameter MM 4.5 cm LA Ao Ratio MM 1.4 AV Cusp Separation MM 1.9 cm DOPPLER AV Peak Velocity 247.2 cm/s AV Peak Gradient 24.4 mmHg AV Mean Gradient 13.0 mmHg AV Velocity Time Integral 42.9 cm LVOT Peak Velocity 74.0 cm/s LVOT Peak Gradient 2.2 mmHg AV Area Cont Eq pk 0.9 cm Mitral E Point Velocity 127.0 cm/s Mitral A Point Velocity 44.4 cm/s Mitral E to A Ratio 2.9 LV E' Lateral Velocity 12.7 cm/s Mitral E to LV E' Lateral Ratio 10.0 TR Peak Velocity 416.0 cm/s TR Peak Gradient 69.2 mmHg Right Atrial Pressure 10.0 mmHg Pulmonary Artery Systolic Pressu 79.2 mmHg Right Ventricular Systolic Press 79.2 mmHg PV Peak Velocity 170.0 cm/s PV Peak Gradient 11.6 mmHg FINDINGS LEFT VENTRICLE The left ventricular systolic function is low normal with an estimated ejection fraction in the rang e of 50- 55%. Normal left ventricular size. Wall thickness is measured at the upper limits of normal. No regional wall motion abnormalities are present. RIGHT VENTRICLE Normal right ventricular size and systolic function. LEFT ATRIUM The left atrial size is normal. RIGHT ATRIUM The right atrial size is normal. ATRIAL SEPTUM Normal atrial septal thickness without atrial level shunting by limited color doppler interrogation. AORTA The aortic root and proximal ascending aorta are normal in size on limited imaging. MITRAL VALVE Structurally normal mitral valve. No mitral valve stenosis or regurgitation. AORTIC VALVE The aortic valve is not well visualized. Bioprosthetic aortic valve appears well seated. No aortic valve stenosis or regurgitation. TRICUSPID VALVE There is severe tricuspid regurgitation. The estimated pulmonary arterial pressure is 79.2 mmHg. PULMONARY VALVE The pulmonary valve is not well visualized. VESSELS The inferior vena cava is normal in size. PERICARDIUM No pericardial effusion. Mati Hong (Electronically Signed) Final Date:27 May 2018 13:11
--- NOTE | 2018-05-27 19:31 | P.PNWCN ---
Wound Care Nurse Consult Description: Consult for Wound Management of right inner ankle per BERONICA Bowling Communicated with: ALEXA Corona Recommendation: Please defer wound care to R medial ankle to Orthopedic surgeon Additional information: Patient not seen for wound R inner ankle. Doctor applied non removable dressing to R medial ankle with directions written on dressing to not change until 2017. Please defer wound care and any wound issues involving the R medial ankle to Orthopedic surgeon. Wound care inpatient is signing off.
[2018-05-28] MEDS: ceFAZolin 2 GM Premix Inj 2 GM/50 ML PIGGYBACK IV.SIG SCH ×3 (02:05→10:03)
--- NOTE | 2018-05-28 08:24 | P.PNOP ---
Subjective Interval history: Resting comfortably with no new complaints Physical Exam Vital signs: Vital Signs 05/27/18 10:50 05/27/18 12:00 05/27/18 20:14 Temperature 99.0 F Pulse Rate 75 Respiratory Rate 17 Blood Pressure 142/70 H Pulse Oximetry 98 96 96 05/27/18 20:16 05/27/18 23:00 05/28/18 00:00 Temperature 98.7 F 98.2 F Pulse Rate 84 83 Respiratory Rate 18 18 19 Blood Pressure 156/77 H 162/87 H Pulse Oximetry 97 98 05/28/18 01:33 05/28/18 04:00 05/28/18 08:00 Temperature 98.6 F 99.4 F Pulse Rate 81 93 H Respiratory Rate 17 18 17 Blood Pressure 124/75 141/65 H Pulse Oximetry 98 89 L Intake & Output 05/27/18 05/28/18 05/28/18 18:59 06:59 18:59 Intake Total 600 / 600 100 / 100 Balance 600 / 600 100 / 100 Intake: IV 50 / 50 100 / 100 Ancef 2 GM Premix Inj 2 gm In 50 / 50 100 / 100 50 ml @ 100 mls/hr IV.SIG Q8H REBECCA Rx#:[id number] Oral 550 / 550 Other: # Voids 2 # Incontinent Voids 4 Date of Last Bowel Movement 05/25/18 05/25/18 Narrative: Right lower extremity: Clean dry dressings intact. Knee immobilizer in place. Intact sensation distally with good capillary refills. She is active dorsiflexion plantarflexion of foot Results - Labs CBC & Chem 7: 05/27/18 06:08 05/27/18 06:08 Laboratory Results - last 24 hr 05/27/18 06:08 B-Natriuretic Peptide 173 H - Imaging Impressions Chest X-Ray 05/27/18 00:00 CONCLUSION: 1. Cardiomegaly with mild pulmonary vascular congestion. - Procedures 05/26/2018 Open reduction internal fixation right distal femur supracondylar fracture Assessment and Plan - Assessment and Plan Right distal femur fracture ORIF POD 2 Nonweightbearing right lower extremity Knee immobilizer at all times except for passive range of motion of knee with physical therapy No active leg lifts or quad sets Begin daily dressing changes starting on Thursday Dressed surgical incision with Xeroform and keep separate from the chronic wound to the right ankle. Wound care may continue dressing changes to the right ankle. Change incision to femur first before progressing to the ankle dressing Lovenox Case management for rehab placement Follow-up appointment with Dr. Leon or TAVO 2 weeks
[2018-05-28] MEDS: Calcium/Vitamin D 250/125 MG Tablet PO SCH ×3 (08:47→17:26)
[2018-05-28] MEDS: Metoprolol Tartrate 25 MG Tablet PO SCH (08:47)
[2018-05-28] MEDS: Pantoprazole Sodium 20 MG DR Tablet PO SCH (08:47)
[2018-05-28] MEDS: Sodium Chloride 0.9% 2 ML Flush BID IV.FLUSH SCH ×2 (08:48→23:21)
[2018-05-28] MEDS: Rivaroxaban 10 MG Tablet PO SCH (10:04)
--- NOTE | 2018-05-28 16:00 | P.PN ---
Subjective Interval history: Follow up for right distal femur fracture status post ORIF. Patient is currently resting in bed. Denies any chest pain, shortness of breath, fever or chills. She is on 2 L of oxygen via nasal cannula. Physical Exam Vital signs: Vital Signs 05/27/18 20:14 05/27/18 20:16 05/27/18 23:00 Temperature 98.7 F Pulse Rate 84 Respiratory Rate 18 18 Blood Pressure 156/77 H Pulse Oximetry 96 97 05/28/18 00:00 05/28/18 01:33 05/28/18 04:00 Temperature 98.2 F 98.6 F Pulse Rate 83 81 Respiratory Rate 19 17 18 Blood Pressure 162/87 H 124/75 Pulse Oximetry 98 98 05/28/18 08:00 05/28/18 08:48 05/28/18 11:54 Temperature 99.4 F 98.7 F Pulse Rate 93 H 77 Respiratory Rate 17 18 18 Blood Pressure 141/65 H 143/76 H Pulse Oximetry 89 L 94 L Intake & Output 05/27/18 05/28/18 05/28/18 18:59 06:59 18:59 Intake Total 600 / 600 100 / 100 50 / 50 Balance 600 / 600 100 / 100 50 / 50 Intake: IV 50 / 50 100 / 100 50 / 50 Ancef 2 GM Premix Inj 2 gm In 50 / 50 100 / 100 50 / 50 50 ml @ 100 mls/hr IV.SIG Q8H REBECCA Rx#:[id number] Oral 550 / 550 Other: # Voids 2 # Incontinent Voids 4 Date of Last Bowel Movement 05/25/18 05/25/18 05/25/18 Narrative: GENERAL: Alert, NAD. SKIN: Warm and dry. HEAD: Normocephalic. EYES: No scleral icterus. No injection or drainage. NECK: Supple, trachea midline. No JVD or lymphadenopathy. CARDIOVASCULAR: Regular rate and rhythm without murmurs, gallops, or rubs. RESPIRATORY: Breath sounds equal bilaterally. No accessory muscle use. GASTROINTESTINAL: Abdomen soft, non-tender, nondistended. MUSCULOSKELETAL: No cyanosis, or edema. Right knee immobilizer in place. BACK: Nontender without obvious deformity. No CVA tenderness. Results - Labs CBC & Chem 7: 05/27/18 06:08 05/27/18 06:08 - Procedures 05/26/2018 Open reduction internal fixation right distal femur supracondylar fracture Assessment and Plan - Plan Ms. Alejo is a 68-year-old female with a history of htn,GERD, and arthritis who was a transfer from [place] for orthopedic evaluation, status post fall. Patient was found to have femur fracture. Orthopedic surgery was consulted. Patient underwent ORIF right distal femur on 05/26/2018. Right distal femur fracture -Status post ORIF. Continue acetaminophen, morphine, [place] for pain management. -Continue Xarelto 10 mg p.o. every 24 hours. -Appreciate Orthopedic surgery recs. Mild pulmonary edema -Chest x-ray shows cardiomegaly as well as mild pulmonary congestion. -echocardiogram shows normal EF but significant pulmonary edema. -DC IV fluid and give Lasix 20 mg IV once. Severe pulmonary hypertension -Recommend outpatient follow up with a multifold operator. -Pulm Artery pressure was around 79 mmHg. Full code. Xarelto. Discharge plan: PT recommends SNF. However, patient does not want to go to SNF. She is requiring a lot of assistance. Thus, we feel it would be unsafe for her to go home with home health. Discussed with nurse manager performance improvement, LYSSA today.
[2018-05-29] MEDS: Pantoprazole Sodium 20 MG DR Tablet PO SCH (08:24)
[2018-05-29] MEDS: Calcium/Vitamin D 250/125 MG Tablet PO SCH ×3 (08:25→17:10)
[2018-05-29] MEDS: Metoprolol Tartrate 25 MG Tablet PO SCH (08:25)
[2018-05-29] MEDS: Sodium Chloride 0.9% 2 ML Flush BID IV.FLUSH SCH ×2 (08:26→20:38)
--- NOTE | 2018-05-29 10:01 | P.PNOP ---
Subjective Interval history: Patient is awake and alert and states her pain is well controlled. She states she is considering rehab placement which I think is the best for her. Physical Exam Vital signs: Vital Signs 05/28/18 11:54 05/28/18 16:53 05/28/18 20:00 Temperature 98.7 F 99.8 F H 99.3 F Pulse Rate 77 86 92 H Respiratory Rate 18 16 19 Blood Pressure 143/76 H 141/69 H 163/73 H Pulse Oximetry 94 L 92 L 93 L 05/29/18 00:00 05/29/18 04:00 05/29/18 08:00 Temperature 99.5 F 98.7 F 99.1 F Pulse Rate 87 82 80 Respiratory Rate 19 19 16 Blood Pressure 177/99 H 176/85 H 182/98 H Pulse Oximetry 96 97 98 Intake & Output 05/28/18 05/29/18 05/29/18 18:59 06:59 18:59 Intake Total 900 / 900 Balance 900 / 900 Intake: IV 50 / 50 Ancef 2 GM Premix Inj 2 gm In 50 / 50 50 ml @ 100 mls/hr IV.SIG Q8H REBECCA Rx#:[id number] Oral 850 / 850 Other: # Incontinent Voids 3 3 Date of Last Bowel Movement 05/25/18 05/25/18 05/25/18 Narrative: RLE: in CKS, dressings dry intact, no calf pain, NVI Results - Labs CBC & Chem 7: 05/27/18 06:08 05/27/18 06:08 - Procedures 05/26/2018 Open reduction internal fixation right distal femur supracondylar fracture Assessment and Plan - Assessment and Plan Right distal femur fracture ORIF POD 3 Nonweightbearing right lower extremity Knee immobilizer at all times except for passive range of motion of knee with physical therapy No active leg lifts or quad sets Daily dressing changes Dressed surgical incision with Xeroform and keep separate from the chronic wound to the right ankle. Wound care may continue dressing changes to the right ankle. Change incision to femur first before progressing to the ankle dressing Lovenox Case management for rehab placement Clear for discharge from orthopedic standpoint Follow-up appointment with Dr. Leon or [place] 2 weeks
[2018-05-29] MEDS: Rivaroxaban 10 MG Tablet PO SCH (10:05)
--- NOTE | 2018-05-29 10:56 | P.PN ---
Subjective Interval history: Follow up for right distal femur fracture status post ORIF. Patient is doing well. She reports improvement of her right leg pain. No fever, chills. She reports some neck pain which she attributes to the way she slept. Physical Exam Vital signs: Vital Signs 05/28/18 11:54 05/28/18 16:53 05/28/18 20:00 Temperature 98.7 F 99.8 F H 99.3 F Pulse Rate 77 86 92 H Respiratory Rate 18 16 19 Blood Pressure 143/76 H 141/69 H 163/73 H Pulse Oximetry 94 L 92 L 93 L 05/29/18 00:00 05/29/18 04:00 05/29/18 08:00 Temperature 99.5 F 98.7 F 99.1 F Pulse Rate 87 82 80 Respiratory Rate 19 19 16 Blood Pressure 177/99 H 176/85 H 182/98 H Pulse Oximetry 96 97 98 Intake & Output 05/28/18 05/29/18 05/29/18 18:59 06:59 18:59 Intake Total 900 / 900 Balance 900 / 900 Intake: IV 50 / 50 Ancef 2 GM Premix Inj 2 gm In 50 / 50 50 ml @ 100 mls/hr IV.SIG Q8H REBECCA Rx#:[id number] Oral 850 / 850 Other: # Incontinent Voids 3 3 Date of Last Bowel Movement 05/25/18 05/25/18 05/25/18 Narrative: GENERAL: Alert, NAD. SKIN: Warm and dry. HEAD: Normocephalic. EYES: No scleral icterus. No injection or drainage. NECK: Supple, trachea midline. No JVD or lymphadenopathy. CARDIOVASCULAR: Regular rate and rhythm without murmurs, gallops, or rubs. RESPIRATORY: Breath sounds equal bilaterally. No accessory muscle use. GASTROINTESTINAL: Abdomen soft, non-tender, nondistended. MUSCULOSKELETAL: No cyanosis, or edema. Right knee immobilizer in place. BACK: Nontender without obvious deformity. No CVA tenderness. Results - Labs CBC & Chem 7: 05/29/18 11:17 05/27/18 06:08 - Procedures 05/26/2018 Open reduction internal fixation right distal femur supracondylar fracture Assessment and Plan - Plan Ms. Alejo is a 68-year-old female with a history of htn,GERD, and arthritis who was a transfer from [place] for orthopedic evaluation, status post fall. Patient was found to have femur fracture. Orthopedic surgery was consulted. Patient underwent ORIF right distal femur on 05/26/2018. Right distal femur fracture -Status post ORIF. Continue acetaminophen, morphine, [place] for pain management. -Continue Xarelto 10 mg p.o. every 24 hours. -Appreciate Orthopedic surgery recs. -Patient was worried about anemia. Hemoglobin rechecked today. Hemoglobin yesterday 7.2 and today 7.7. Mild pulmonary edema -Chest x-ray shows cardiomegaly as well as mild pulmonary congestion. -echocardiogram shows normal EF but significant pulmonary edema. Severe pulmonary hypertension -Recommend outpatient follow up with her associate publisher. -Pulm Artery pressure was around 79 mmHg. Hypertension -Will nifedipine 60 mg daily. This may also help with pulmonary hypertension. Full code. Xarelto. Discharge plan: PT recommends SNF. However, patient does not want to go to SNF. She is requiring a lot of assistance. Thus, we feel it would be unsafe for her to go home with home health.
[2018-05-29 11:50] LABS: Hematocrit 23.9 % (35.0-46.0); Hemoglobin 7.7 gm/dL (11.6-15.3)
[2018-05-30] MEDS: Pantoprazole Sodium 20 MG DR Tablet PO SCH (08:51)
[2018-05-30] MEDS: Metoprolol Tartrate 25 MG Tablet PO SCH (08:51)
[2018-05-30] MEDS: Calcium/Vitamin D 250/125 MG Tablet PO SCH ×3 (08:51→18:54)
--- NOTE | 2018-05-30 09:32 | P.PN ---
Subjective Interval history: Follow up for right distal femur fracture status post ORIF. Patient is currently resting in bed. She is on room air. Complains of right ankle pain. Physical Exam Vital signs: Vital Signs 05/29/18 12:00 05/29/18 16:00 05/29/18 20:00 Temperature 98.8 F 99.5 F 99.1 F Pulse Rate 78 82 83 Respiratory Rate 18 18 19 Blood Pressure 149/69 H 185/87 H 126/56 L Pulse Oximetry 95 100 98 05/30/18 00:00 05/30/18 04:00 05/30/18 08:00 Temperature 98.8 F 98.8 F 98.2 F Pulse Rate 79 83 86 Respiratory Rate 18 18 16 Blood Pressure 134/64 140/74 138/63 Pulse Oximetry 94 L 94 L 93 L Intake & Output 05/29/18 05/30/18 05/30/18 18:59 06:59 18:59 Intake Total 720 / 720 Balance 720 / 720 Intake: Oral 720 / 720 Other: # Incontinent Voids 3 Date of Last Bowel Movement 05/25/18 05/25/18 Narrative: GENERAL: Alert, NAD. SKIN: Warm and dry. HEAD: Normocephalic. EYES: No scleral icterus. No injection or drainage. NECK: Supple, trachea midline. No JVD or lymphadenopathy. CARDIOVASCULAR: Regular rate and rhythm without murmurs, gallops, or rubs. RESPIRATORY: Breath sounds equal bilaterally. No accessory muscle use. GASTROINTESTINAL: Abdomen soft, non-tender, nondistended. MUSCULOSKELETAL: No cyanosis, or edema. Right knee immobilizer in place. BACK: Nontender without obvious deformity. No CVA tenderness. Results - Labs CBC & Chem 7: 05/29/18 11:17 05/27/18 06:08 Laboratory Results - last 24 hr 05/29/18 11:17 Hgb 7.7 L Hct 23.9 L - Procedures 05/26/2018 Open reduction internal fixation right distal femur supracondylar fracture Assessment and Plan - Plan Ms. Alejo is a 68-year-old female with a history of htn,GERD, and arthritis who was a transfer from [place] for orthopedic evaluation, status post fall. Patient was found to have femur fracture. Orthopedic surgery was consulted. Patient underwent ORIF right distal femur on 05/26/2018. Right distal femur fracture -Status post ORIF. Continue acetaminophen, morphine, [place] for pain management. -Continue Xarelto 10 mg p.o. every 24 hours. -Appreciate Orthopedic surgery recs. -Patient was worried about anemia. Hemoglobin 7.2 ==> 7.7. Mild pulmonary edema -Chest x-ray shows cardiomegaly as well as mild pulmonary congestion. -echocardiogram shows normal EF but significant pulmonary edema. Severe pulmonary hypertension -Recommend outpatient follow up with her winding inspector. -Pulmonary Artery pressure was around 79 mmHg. Hypertension -Will continue nifedipine 60 mg daily. This may also help with pulmonary hypertension. Full code. Xarelto. Discharge plan: PT recommends SNF. Son agrees with SNF placement.
[2018-05-30] MEDS: Sodium Chloride 0.9% 2 ML Flush BID IV.FLUSH SCH ×2 (18:48→20:28)
[2018-05-30] MEDS: Rivaroxaban 10 MG Tablet PO SCH (18:52)
[2018-05-31] MEDS: Morphine Sulfate Inj 2 MG/ML Vial IV.PUSH PRN (06:30)
--- NOTE | 2018-05-31 07:38 | P.PNOP ---
Subjective Interval history: POD 5 s/p ORIF right distal femur doing well. no changes Physical Exam Vital signs: Vital Signs 05/30/18 08:00 05/30/18 12:00 05/30/18 16:00 Temperature 98.2 F 97.8 F 98.3 F Pulse Rate 86 65 73 Respiratory Rate 16 14 16 Blood Pressure 138/63 162/77 H 144/70 H Pulse Oximetry 93 L 94 L 95 05/30/18 20:00 05/31/18 00:00 05/31/18 04:00 Temperature 98.9 F 98.4 F 98.4 F Pulse Rate 80 84 83 Respiratory Rate 20 20 20 Blood Pressure 128/65 158/79 H 140/72 Pulse Oximetry 95 94 L 93 L Intake & Output 05/30/18 05/31/18 05/31/18 18:59 06:59 18:59 Intake Total 720 / 720 480 / 480 Balance 720 / 720 480 / 480 Weight 111.4 kg Intake: Oral 720 / 720 480 / 480 Other: # Voids 2 Date of Last Bowel Movement 05/25/18 Narrative: RLE: knee dressing clean and dry. intact. NVI. +CKS. ankle dressing removed and visualized. healing. minimal drainage. Results - Labs CBC & Chem 7: 05/29/18 11:17 05/27/18 06:08 - Procedures 05/26/2018 Open reduction internal fixation right distal femur supracondylar fracture Assessment and Plan - Assessment and Plan Right distal femur fracture ORIF POD 5 Nonweightbearing right lower extremity Knee immobilizer at all times except for passive range of motion of knee with physical therapy No active leg lifts or quad sets Daily dressing changes Dressed surgical incision with Xeroform and keep separate from the chronic wound to the right ankle. Wound care may continue dressing changes to the right ankle. Change incision to femur first before progressing to the ankle dressing Lovenox Case management for rehab placement Clear for discharge from orthopedic standpoint Follow-up appointment with Dr. Leon or [facility] 2 weeks
[2018-05-31] MEDS: Calcium/Vitamin D 250/125 MG Tablet PO SCH ×3 (09:41→17:25)
[2018-05-31] MEDS: Metoprolol Tartrate 25 MG Tablet PO SCH (09:41)
[2018-05-31] MEDS: Pantoprazole Sodium 20 MG DR Tablet PO SCH (09:41)
[2018-05-31] MEDS: Sodium Chloride 0.9% 2 ML Flush BID IV.FLUSH SCH (09:42)
--- NOTE | 2018-05-31 10:49 | P.PN ---
Subjective Interval history: Follow up for right distal femur fracture status post ORIF. Patient is doing well. However, she complains of significant right ankle pain. No fever, chills. Physical Exam Vital signs: Vital Signs 05/30/18 12:00 05/30/18 16:00 05/30/18 20:00 Temperature 97.8 F 98.3 F 98.9 F Pulse Rate 65 73 80 Respiratory Rate 14 16 20 Blood Pressure 162/77 H 144/70 H 128/65 Pulse Oximetry 94 L 95 95 05/31/18 00:00 05/31/18 04:00 05/31/18 08:00 Temperature 98.4 F 98.4 F 98.5 F Pulse Rate 84 83 90 Respiratory Rate 20 20 18 Blood Pressure 158/79 H 140/72 157/76 H Pulse Oximetry 94 L 93 L 93 L Intake & Output 05/30/18 05/31/18 05/31/18 18:59 06:59 18:59 Intake Total 720 / 720 480 / 480 Balance 720 / 720 480 / 480 Weight 111.4 kg Intake: Oral 720 / 720 480 / 480 Other: # Voids 2 Date of Last Bowel Movement 05/25/18 Narrative: GENERAL: Alert, NAD. SKIN: Warm and dry. A large clean border chronic wound noted on the medial aspect of left ankle. No erythema/swelling. HEAD: Normocephalic. EYES: No scleral icterus. No injection or drainage. NECK: Supple, trachea midline. No JVD or lymphadenopathy. CARDIOVASCULAR: Regular rate and rhythm without murmurs, gallops, or rubs. RESPIRATORY: Breath sounds equal bilaterally. No accessory muscle use. GASTROINTESTINAL: Abdomen soft, non-tender, nondistended. MUSCULOSKELETAL: No cyanosis, or edema. s/p right femur ORIF. BACK: Nontender without obvious deformity. No CVA tenderness. Results - Labs CBC & Chem 7: 05/29/18 11:17 05/27/18 06:08 - Procedures 05/26/2018 Open reduction internal fixation right distal femur supracondylar fracture Assessment and Plan - Plan Ms. Alejo is a 68-year-old female with a history of htn,GERD, and arthritis who was a transfer from [place] for orthopedic evaluation, status post fall. Patient was found to have femur fracture. Orthopedic surgery was consulted. Patient underwent ORIF right distal femur on 05/26/2018. Right distal femur fracture -Status post ORIF. Continue acetaminophen, morphine, [place] for pain management. -Continue Xarelto 10 mg p.o. every 24 hours. -Appreciate Orthopedic surgery recs. -Patient was worried about anemia. Hemoglobin 7.2 ==> 7.7. Right ankle pain Chronic wound near right ankle -Consult Podiatry. Continue wound care. Mild pulmonary edema -Chest x-ray shows cardiomegaly as well as mild pulmonary congestion. -echocardiogram shows normal EF but significant pulmonary edema. 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 -Pulmonary Artery pressure was around 79 mmHg. Hypertension -Will continue nifedipine 60 mg daily. This may also help with pulmonary hypertension. Full code. Xarelto. Discharge plan: PT recommends SNF. Son agrees with SNF placement.
--- NOTE | 2018-05-31 14:43 | ECG ---
Date Performed: 05/27/2018 Time Performed: 12:14:27 PTAGE: 68 years EKG: Sinus rhythm MARKED LEFT AXIS DEVIATION MODERATE INTRAVENTRICULAR CONDUCTION DELAY NONSPECIFIC ST & T-WAVE ABNORM ALITY ABNORMAL ECG NO PREVIOUS TRACING DOCTOR: Kyle Byers Interpretating Date/Time 05/31/2018 14:39:18
[2018-05-31] MEDS ORDERED: Rivaroxaban 10 MG Tablet PO SCH (18:00)
[2018-06-01] MEDS ORDERED: Bisacodyl 10 MG Supp RECTAL PRN (01:43)
[2018-06-01] MEDS: Sodium Chloride 0.9% 2 ML Flush BID IV.FLUSH SCH ×2 (03:59→09:23)
--- NOTE | 2018-06-01 06:36 | P.PNOP ---
Subjective Interval history: Resting comfortably with no new complaints Physical Exam Vital signs: Vital Signs 05/31/18 08:00 05/31/18 12:00 05/31/18 16:00 Temperature 98.5 F 98.7 F 98.4 F Pulse Rate 90 65 77 Respiratory Rate 18 18 17 Blood Pressure 157/76 H 152/70 H 129/55 L Pulse Oximetry 93 L 92 L 91 L 05/31/18 20:00 06/01/18 00:00 06/01/18 04:00 Temperature 98.7 F 98.5 F 97.7 F Pulse Rate 77 83 83 Respiratory Rate 18 18 19 Blood Pressure 112/71 132/63 115/64 Pulse Oximetry 93 L 93 L 94 L Intake & Output 05/31/18 05/31/18 06/01/18 06:59 18:59 06:59 Intake Total 480 / 480 Balance 480 / 480 Weight 111.4 kg 112.4 kg Intake: Oral 480 / 480 Other: # Voids 2 # Incontinent Voids 4 Date of Last Bowel Movement 05/25/18 05/25/18 Narrative: Right lower extremity: Clean dry dressings intact. Knee immobilizer in place. Intact sensation distally with active dorsiflexion and plantarflexion of foot Results - Labs CBC & Chem 7: 05/29/18 11:17 05/27/18 06:08 Laboratory Results - last 24 hr 05/27/18 06:08 Vit D 1,25-Dihydroxy 36 - Procedures 05/26/2018 Open reduction internal fixation right distal femur supracondylar fracture Assessment and Plan - Assessment and Plan Right distal femur fracture ORIF POD 6 Nonweightbearing right lower extremity Knee immobilizer at all times except for passive range of motion of knee with physical therapy No active leg lifts or quad sets Daily dressing changes Dressed surgical incision with Xeroform and keep separate from the chronic wound to the right ankle. Wound care may continue dressing changes to the right ankle. Change incision to femur first before progressing to the ankle dressing Lovenox Case management for rehab placement Clear for discharge from orthopedic standpoint Follow-up appointment with Dr. Leon or [place] 2 weeks
[2018-06-01 08:41] VITALS: RESP 17
[2018-06-01] MEDS ORDERED: Senna/Docusate Sodium 8.6/50 MG Tablet PO SCH (09:00)
[2018-06-01] MEDS: Calcium/Vitamin D 250/125 MG Tablet PO SCH ×2 (09:22→13:52)
[2018-06-01] MEDS: Metoprolol Tartrate 25 MG Tablet PO SCH (09:22)
[2018-06-01] MEDS: Pantoprazole Sodium 20 MG DR Tablet PO SCH (09:22)
[2018-06-01 12:31] VITALS: O2SAT 95
--- NOTE | 2018-06-01 13:53 | P.DS ---
Date of admission: 05/25/18 22:30 Primary care physician: UNKNOWN Attending physician on discharge: Yennifer Hauser Anticipated date of discharge: 06/01/18 Brief History from admission: 68-year-old female htn,GERD, and arthritis was a transfer from [facility] for orthopedic evaluation, status post fall. Patient was complaining of right knee pain she states when she was using the commode earlier she stood up and felt her knee give out and she fell. She denies any trauma of hitting her head , LOC or dizziness. X-rays completed at [facility] and reviewed, femur x- ray shows a closed acute spiral distal femoral metadiaphyseal fracture with 1.8 cm lateral displacement. She also complains of a right inner ankle chronic wound that she has had she states she does her own wound care dressings every other day but states over the last month she has seen it becoming worse, she states she has some yellow drainage from time to time, no foul smell or fevers. She denies any recent chest pain or shortness of breath. Patient update on day of discharge: Patient is doing well. She continues to have right ankle pain. No fever, chills. DS: Medications - Discharge Medications Prescriptions: calcium carbonate-vitamin D3 [Oyster Shell Calcium-Vit D3] 1 tab PO TID #90 tab hydrocodone-acetaminophen [[place]] 1 tab PO Q4H #40 tab mupirocin calcium [Bactroban] 1 applic TOPICAL TID 30 Days g RX: nifedipine 60 mg PO DAILY #30 tab rivaroxaban [Xarelto] 10 mg PO DAILY #14 tab DS: Summary Hospital Course: Ms. Alejo is a 68-year-old female with a history of htn,GERD, and arthritis who was a transfer from [place] for orthopedic evaluation, status post fall. Patient was found to have femur fracture. Orthopedic surgery was consulted. Patient underwent ORIF right distal femur on 05/26/2018. Right distal femur fracture -Status post ORIF. Continue acetaminophen, morphine, [place] for pain management. -Continue Xarelto 10 mg p.o. every 24 hours. -Appreciate Orthopedic surgery recs. -Patient was worried about anemia. Hemoglobin 7.2 ==> 7.7. Right ankle pain Chronic wound near right ankle -Consult Podiatry. We obtained right ankle X-ray which showed severe osteoporosis but no acute fracture. -Outpatient follow up with Podiatry as well as vascular surgery. -Continue outpatient wound care. Mild pulmonary edema -Chest x-ray shows cardiomegaly as well as mild pulmonary congestion. -echocardiogram shows normal EF but significant pulmonary edema. 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 -Pulmonary Artery pressure was around 79 mmHg. Hypertension -Will continue nifedipine 60 mg daily. This may also help with pulmonary hypertension. Full code. Xarelto. - Time Spent with Patient Total time spent providing and/or coordinating discharge services: Greater than 30 minutes - Quality: VTE Deep Vein Thrombosis/Pulmonary Embolism Present on Admission: No Exam Vital signs: Vital Signs 05/31/18 16:00 05/31/18 20:00 06/01/18 00:00 Temperature 98.4 F 98.7 F 98.5 F Pulse Rate 77 77 83 Respiratory Rate 17 18 18 Blood Pressure 129/55 L 112/71 132/63 Pulse Oximetry 91 L 93 L 93 L 06/01/18 04:00 06/01/18 08:00 06/01/18 12:00 Temperature 97.7 F 98.9 F 98.9 F Pulse Rate 83 88 70 Respiratory Rate 19 17 17 Blood Pressure 115/64 119/62 132/68 Pulse Oximetry 94 L 91 L 95 Intake & Output 05/31/18 06/01/18 06/01/18 18:59 06:59 18:59 Weight 112.4 kg Other: # Incontinent Voids 4 Date of Last Bowel Movement 05/25/18 Narrative: GENERAL: Alert, NAD. SKIN: Warm and dry. A large clean border chronic wound noted on the medial aspect of left ankle. No erythema/swelling. HEAD: Normocephalic. EYES: No scleral icterus. No injection or drainage. NECK: Supple, trachea midline. No JVD or lymphadenopathy. CARDIOVASCULAR: Regular rate and rhythm without murmurs, gallops, or rubs. RESPIRATORY: Breath sounds equal bilaterally. No accessory muscle use. GASTROINTESTINAL: Abdomen soft, non-tender, nondistended. MUSCULOSKELETAL: No cyanosis, or edema. s/p right femur ORIF. BACK: Nontender without obvious deformity. No CVA tenderness. Results Procedures completed during hospitalization: 05/26/2018 Open reduction internal fixation right distal femur supracondylar fracture - Impressions Femur X-Ray 05/26/18 00:00 CONCLUSION: Good position and alignment on this postoperative study. Chest X-Ray 05/27/18 00:00 CONCLUSION: 1. Cardiomegaly with mild pulmonary vascular congestion. Ankle X-Ray 06/01/18 13:23 CONCLUSION: Severe osteoporosis in the hindfoot. No acute fracture seen Discharge Plan - Discharge Disposition Patient Disposition: 03 Discharge to SNF - Discharge Condition Condition: Fair - Discharge Order Discharge Orders: Discharge Order (Routine); Ordered 06/01/18 Ordered By: Yennifer Hauser Orthopedic Clear for Discharge (Routine); Ordered 05/29/18 Ordered By: Queta Jeong ([place]) - Discharge Details Anticipated Discharge Date: 06/01/18 - Physicians Team Primary Care Provider: UNKNOWN, Attending Provider: Yennifer Hauser Other Providers: Antony Russo MD ; Derick Day MD ; [facility] ; Amaris Whitlock DPM - Rxs /Orders / Referrals /Forms Prescriptions: New calcium carbonate-vitamin D3 [Oyster Shell Calcium-Vit D3] 250-125 mg-unit Tablet 1 tab PO TID Qty: 90 RF: 0 hydrocodone-acetaminophen [[place]] 7.5-325 mg Tablet 1 tab PO Q4H Qty: 40 RF: 0 mupirocin calcium [Bactroban] 2 % Cream 1 applic TOPICAL TID 30 Days RF: 0 nifedipine 60 mg Tablet Extended Release 24hr 60 mg PO DAILY Qty: 30 RF: 11 rivaroxaban [Xarelto] 10 mg Tablet 10 mg PO DAILY Qty: 14 RF: 0 Continue metoprolol tartrate 25 mg Tablet 25 mg PO DAILY omeprazole 20 mg Tablet,Delayed Release (Dr/Ec) 20 mg PO DAILY Discontinued aspirin 325 mg Tablet 650 mg PO Q4-6H PRN (Reason: Pain) Ambulatory Orders / Order Sets / DME: Walker Folding (Routine) Location: Determined by Patient Ordered By: Kendall Garner Wheelchair (1 each) (Routine) Location: Determined by Patient Ordered By: Kendall Garner Referrals: Marco Antonio Geronimo MD [Physician] - See Instructions (Podiatry recommended outpatient vascular surgery eval for chronic right leg wound. In 1-2 weeks. ) Amaris Whitlock DPM [Physician] - See Instructions (Within 1-2 weeks. ) Derick Day MD [Physician] - See Instructions (2 weeks) UNKNOWN, [Primary Care Provider] - See Instructions - Discharge Instructions Patient Printed Instructions: Wound Infection (DC), Insect Bite or Sting (DC), Brown Recluse Spider Bite (DC), Chronic Wound Care (DC), ORIF (DC) Additional Instructions: 06/01/18 Prescriptions sent to [facility]: [place] [facility] [place].
--- NOTE | 2018-06-01 14:06 | XR ---
EXAM DATE: 06/01/2018 1:58 PM EDT AGE/SEX: 68 years / Female INDICATIONS: Right ankle pain. CLINICAL DATA: This is the patient's subsequent encounter. Patient reports that signs and symptoms h ave been present for 1 week and indicates a pain score of 10/10. MEDICAL/SURGICAL HISTORY: None. CABG. COMPARISON: . FINDINGS: 3 view right ankle demonstrate there is marked arthritic change in pes planus deformities. There is v algus alignment of the hindfoot and articulation of the fibula with the talus. There is severe athero sclerotic disease. There is marked spurring in the talonavicular joint. No acute fractures noted. CONCLUSION: Severe osteoporosis in the hindfoot. No acute fracture seen Electronically signed by: Mahamed Brown MD 06/01/2018 2:05 PM EDT
[2018-06-01 16:55] VITALS: BP 122/64; PULSE 71; TEMP 98.5
--- NOTE | 2018-06-01 22:16 | MB ---
cc: Amaris Whitlock DPM DATE: 06/01/2018 REASON FOR CONSULTATION: Right ankle wound. HISTORY OF PRESENT ILLNESS: The patient is a 68-year-old female with hypertension, GERD, arthritis, referred from [facility] to [facility] for a right femur fracture. With regard to her right medial ankle wound, she relates that it has been there for approximately 5 years. Has had previous biopsies, which were negative for cancer and is currently under the care of wound care. Denies any nausea, vomiting, fever, diarrhea or chills. PAST SURGICAL HISTORY: Hip replacement. SOCIAL HISTORY: Denies any alcohol, illicit drugs or smoking. PHYSICAL EXAMINATION: Right medial ankle DP and PT palpable, warm to warm, edema, no erythema, no active drainage. Medial ankle with a 4 x 4 irregularly shaped, partial thickness wound. There is no exposed bone or tendon. There is some mild serous drainage, but no streaking, no purulence, no malodor. IMAGING DATA: Right ankle, 3 views, no cortical disruptions noted. Completed 06/01/2018. ASSESSMENT AND PLAN: Right medial ankle wound. My recommendation is to follow up with wound care. Convert to Bactroban and dry sterile dressings. Additionally, consult vascular surgery for any kind of venous intervention for her right medial ankle. Thank you for the kind consult. Amaris Whitlock DPM SR/sv , 09:09 PM , 09:17 PM
== END 2018-06-01 17:07 ==
LOC: NEPGCP 22:30 → N06 05-26 08:07
PROVIDERS: ADMIT Hospitalist; ATTEND Hospitalist
PROC: ORIFFEM (2018-05-26 09:19)